=== PATIENT | male | born 1975 | race Caucasian/White ===

== ENCOUNTER 2022-10-11 16:46 | Emergency (ER) | payer BC ==
[2022-10-11] MEDS ORDERED: Boostrix 0.5 ML (Tdap) VIAL (>/=7 yrs of age) ONE (19:32)
== END 2022-10-11 20:31 | disposition home or self-care (01) ==
LOC: CSHERS 16:46
DX: S61.412A Laceration without foreign body of left hand, initial encounter (principal); Z23 Encounter for immunization; I10 Essential (primary) hypertension; W22.8XXA Striking against or struck by other objects, initial encounter
CPT/HCPCS: 90471; 90715; 99283